=== PATIENT | male | born 1995 | race African-American/Black ===

== ENCOUNTER 2017-11-11 18:26 | Emergency (ER) | payer SELFPAY ==
[~2017-11-11] VITALS: Ht 182.9 cm; Wt 85.0 kg
[2017-11-11 19:52] VITALS: BP 134/84
== END 2017-11-11 23:00 | disposition left against medical advice (07) ==
LOC: ER 22:03
DX: R06.02 Shortness of breath (principal); J02.9 Acute pharyngitis, unspecified; F12.10 Cannabis abuse, uncomplicated; Z53.21 Procedure and treatment not carried out due to patient leaving prior to being seen by health care provider